=== PATIENT | female | born 1995 | race Caucasian/White ===

== ENCOUNTER 2017-07-26 18:40 | Emergency (ER) | payer BC ==
[~2017-07-26] VITALS: Ht 170.2 cm; Wt 59.0 kg
[2017-07-26 18:44] VITALS: BP 143/69; PULSE 82; RESP 16; TEMP 98; O2SAT 99
[2017-07-26] MEDS ORDERED: ADDE20 PO (19:05)
[2017-07-26] MEDS ORDERED: CEPH-460 PO (20:07)
--- NOTE | 2017-07-26 20:07 | PD ---
HPI Chief Complaint: Laceration/Skin Injury Time Seen by Provider: 20:02 Travel History International Travel<30 days: No Contact w/Intl Traveler<30days: No Traveled to known affect area: No History of Present Illness HPI 22-year-old female presents to emergency department with a laceration to the left index finger. Patient states that she was cutting some vegetables and accidentally cut her index finger. Patient denies numbness or tingling. Denies finger weakness. Patient states she has full range of motion however this is painful. Patient denies chronic medical issues or chronic medication use. 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 Patient is right-handed. PFSH Past Medical History ADD: Yes Diminished Hearing: No Tetanus Vaccination: Unknown Influenza Vaccination: No ?: Not LMP: 3 WEEKS Social History Alcohol Use: Yes (soc) Tobacco Use: No Substance Use: No Allergies-Medications (Allergen,Severity, Reaction): Coded Allergies: amoxicillin (Verified Allergy, Unknown, 07/26/17) Reported Meds & Prescriptions Reported Meds & Active Scripts Active Keflex (Cephalexin) 500 Mg Capsule 500 Mg PO TID 7 Days Reported Adderall (Amphetamine-Dextroamphetamine) 20 Mg Tab 20 Mg PO BID Avoid late evening doses. Space doses at least 4 to 6 hours if more than once/day dosing. Review of Systems Except as stated in HPI: all other systems reviewed are Neg Physical Exam Narrative GENERAL: Well-nourished, well-developed patient. SKIN: Focused skin assessment warm/dry. HEAD: Normocephalic. EYES: No scleral icterus. No injection or drainage. NECK: Supple, trachea midline. No JVD or lymphadenopathy. CARDIOVASCULAR: Regular rate and rhythm without murmurs, gallops, or rubs. RESPIRATORY: Breath sounds equal bilaterally. No accessory muscle use. MUSCULOSKELETAL: No cyanosis, or edema. Left index finger- dorsal aspect with a U-shaped laceration of the proximal phalanx, no tendon or ligament involvement. Bone not visualized. Full range of motion. Neurovascular intact. BACK: Nontender without obvious deformity. No CVA tenderness. Data Data Last Documented VS Vital Signs Date Time Temp Pulse Resp B/P (MAP) Pulse Ox O2 Delivery O2 Flow Rate FiO2 07/26/17 18:44 98.0 82 16 143/69 (93) 99 Orders Orders Tetanus/Diphtheria Tox Adult (Tetanus/Di (07/26/17 20:15) Wound Care (07/26/17 20:07) Ed Discharge Order (07/26/17 20:08) [facility] Medical Decision Making Medical Screen Exam Complete: Yes Emergency Medical Condition: Yes Differential Diagnosis Left index finger laceration, avulsion, abrasion Narrative Course 22-year-old female presents to emergency department with a laceration to the dorsal aspect of left index finger. Patient states that she was cutting some vegetables and accidentally cut her index finger. Patient denies numbness or tingling. Denies finger weakness. Patient states she has full range of motion however this is painful. Patient denies chronic medical issues or chronic medication use. 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 Patient is right-handed. Vital signs stable. Physical exam findings without evidence of deep tissue involvement. Neurovascularly intact. Laceration repair completed. Tetanus vaccination administered. Antibiotic prophylaxis. Pt advised to have sutures removed in 7-10days. Advised to watch or infection. Wound care discussed. Followup with your PCP in 2-3 days. Return to the ED for worsening or persistent symptoms. Procedures Procedure Narrative Digital block performed. LACERATION LOCATION: Left index finger LENGTH: 2-3cm NUMBER OF STITCHES/PELON: 6 interrupted REPAIR: The area of the laceration was prepped with Betadine and sterilely draped. The left index finger was digitally blocked 1% lidocaine without epi. The wound was copiously irrigated and explored without evidence of foreign body, tendon injury or neurovascular injury. The wound was closed using 5-0 prolene. This was a single layer repair. A sterile dressing was applied. The patient was advised to keep the dressing clean and dry. Patient tolerated the procedure well. Diagnosis Primary Impression: Laceration of finger Qualified Codes: S61.211A - Laceration without foreign body of left index finger without damage to nail, initial encounter Referrals: Primary Care Physician Additional Instructions: Follow up with your primary care physician within 2-3 days. If your symptoms persist or worsen, return to the emergency department. Keep area clean and dry. You may use [id number] triple antibiotic ointments for your injury daily. Change dressings daily. If bleeding starts again, applied pressure and elevate the area. If he developed increased redness, swelling, or pain return to the emergency department. Suture removal in 7-10 days. Scripts Cephalexin (Keflex) 500 Mg Capsule 500 MG PO TID for Infection for 7 Days, CAP 0 Refills Prov: Patricia Minor 07/26/17 Disposition: 01 DISCHARGE HOME Condition: Stable Patricia Minor Jul 26, 2017 20:07
[2017-07-26] MEDS ORDERED: TETANUS/DIPHTHERIA TOXOID ADULT 0.5 ML VIAL IM ONE (20:15)
== END 2017-07-26 20:33 | disposition home or self-care (01) ==
LOC: PHED 18:40
DX: S61.211A Laceration without foreign body of left index finger without damage to nail, initial encounter (principal); W26.9XXA Contact with unspecified sharp object(s), initial encounter; Y93.G1 Activity, food preparation and clean up; Z23 Encounter for immunization
CPT/HCPCS: 12001; 90471; 90714